=== PATIENT | male | born 1995 | race Caucasian/White ===

== ENCOUNTER 2018-11-22 00:22 | Emergency (ER) | payer BC ==
[~2018-11-22 00:22] MED LIST: CLEOCIN HCL150 M1 PO; NORCO 325 MG-51 TA1 PO
[2018-11-22 01:27] VITALS: BP 104/77
== END 2018-11-22 01:28 | disposition home or self-care (01) ==
LOC: ED 00:22
DX: K04.7 Periapical abscess without sinus (principal); F32.9 Major depressive disorder, single episode, unspecified; F41.9 Anxiety disorder, unspecified; F17.210 Nicotine dependence, cigarettes, uncomplicated; Z88.0 Allergy status to penicillin
CPT/HCPCS: J1885